=== PATIENT | male | born 1955 | race Caucasian/White ===

== ENCOUNTER 2016-11-27 16:14 | Emergency (ER) | payer MEDICAID ==
[~2016-11-27] VITALS: Ht 170.2 cm; Wt 80.0 kg
[~2016-11-27 16:14] MED LIST: AMLO5TAB2 PO; ATOR20TA9 PO; BENZ0.5T PO; BENZ1TAB61 PO; CARV6.252 PO; CHLO100T PO; DOCU-131 PO; ENAL2.5T PO; ENAL5TAB PO; FLUO10CA7 PO; HALO0.5T PO; HYDR-3341 PO; HYDR25TA6 PO; METO50TA82 PO; OXYC5TAB3 PO; POLY17PO5 PO; RISP0.253 PO; RISP2TAB35 PO; SODI1TAB PO; ZOLP5TAB6 PO
[2016-11-27 16:17] VITALS: BP 146/102
[2016-11-27] MEDS ORDERED: IBUPROFEN 200 MG TABLET ONE (17:13)
[2016-11-27] MEDS ORDERED: IBUPROFEN 200 MG TABLET PO ONE (17:30)
== END 2016-11-27 16:34 | disposition home or self-care (01) ==
LOC: ED 16:28
DX: S82.55XA Nondisplaced fracture of medial malleolus of left tibia, initial encounter for closed fracture (principal); S93.412A Sprain of calcaneofibular ligament of left ankle, initial encounter; S93.492A Sprain of other ligament of left ankle, initial encounter; I10 Essential (primary) hypertension; F20.9 Schizophrenia, unspecified; F10.120 Alcohol abuse with intoxication, uncomplicated; X50.1XXA Overexertion from prolonged static or awkward postures, initial encounter; Y93.89 Activity, other specified; Y99.8 Other external cause status; Y92.89 Other specified places as the place of occurrence of the external cause
CPT/HCPCS: 29515; 99284

== ENCOUNTER 2016-12-12 00:34 | Emergency (ER) | payer MEDICAID ==
[~2016-12-12] VITALS: Ht 167.6 cm; Wt 80.0 kg
[2016-12-12 00:47] VITALS: BP 176/113
== END 2016-12-12 02:16 | disposition home or self-care (01) ==
LOC: ED 01:14
DX: S82.64XD Nondisplaced fracture of lateral malleolus of right fibula, subsequent encounter for closed fracture with routine healing (principal); I10 Essential (primary) hypertension; N40.0 Benign prostatic hyperplasia without lower urinary tract symptoms; X58.XXXD Exposure to other specified factors, subsequent encounter
CPT/HCPCS: 99283

== ENCOUNTER 2016-12-17 11:12 | Emergency (ER) | payer MEDICAID ==
[~2016-12-17] VITALS: Ht 170.2 cm; Wt 79.0 kg
[2016-12-17] MEDS ORDERED: ENAL2.5T PO (11:25)
[2016-12-17 11:54] LABS: HEMATOCRIT 41.8 % (39.2-51.8); HEMOGLOBIN 13.7 g/dL (13.7-18.0); WHITE BLOOD COUNT 7.1 x10^3/uL (3.4-10)
[2016-12-17 12:07] LABS: BLOOD UREA NITROGEN 9 mg/dL (7-18)
[2016-12-17] MEDS ORDERED: SODIUM CHLORIDE FLUSH 10ML SYR IVF ONE (12:30)
[2016-12-17 12:51] VITALS: BP 137/109
== END 2016-12-17 13:22 | disposition home or self-care (01) ==
LOC: MERGE 11:12 → ED 13:15
DX: S82.52XA Displaced fracture of medial malleolus of left tibia, initial encounter for closed fracture (principal); I10 Essential (primary) hypertension; E78.00 Pure hypercholesterolemia, unspecified; G89.29 Other chronic pain; Z79.82 Long term (current) use of aspirin; W18.30XA Fall on same level, unspecified, initial encounter; Y93.89 Activity, other specified; Y92.89 Other specified places as the place of occurrence of the external cause; Y99.8 Other external cause status
CPT/HCPCS: 29515; 36415; 71010; 80047; 80048; 82040; 83880; 85025; 85610; 85730; 93005

== ENCOUNTER 2016-12-25 18:28 | Emergency (ER) | payer MEDICAID ==
[~2016-12-25] VITALS: Ht 152.4 cm; Wt 76.8 kg
[2016-12-25 18:39] VITALS: BP 161/96
== END 2016-12-25 19:57 | disposition home or self-care (01) ==
LOC: ED 19:30
DX: S82.55XD Nondisplaced fracture of medial malleolus of left tibia, subsequent encounter for closed fracture with routine healing (principal); I10 Essential (primary) hypertension; F20.9 Schizophrenia, unspecified; E78.00 Pure hypercholesterolemia, unspecified; F17.200 Nicotine dependence, unspecified, uncomplicated
CPT/HCPCS: 99281

== ENCOUNTER 2018-03-24 14:49 | Emergency (ER) | payer MEDICAID ==
[~2018-03-24] VITALS: Ht 167.6 cm; Wt 90.9 kg
[~2018-03-24 14:49] MED LIST changes: +AMLO-150 PO; -AMLO5TAB2 PO; +ATOR20TA37 PO; -ATOR20TA9 PO; -BENZ0.5T PO; +BENZ0.5T35 PO; +ENAL20TA PO; +HYDR25TA11 PO; +HYDR50TA13 PO; +METO25TA35 PO; +MIRT15TA4 PO; +NICO-487 TD; +RISP1TAB45 PO; +RISP4TAB2 PO; +SIMV20TA3 PO; +ZOLP10TA PO
[2018-03-24 15:07] VITALS: BP 153/100
--- NOTE | 2018-03-24 15:20 | NUR ---
[facility] FROM [facility]. PER EMS THEY WERE CALLED BY [employer] WHO HAD BEEN CONTACTED FOR A WELLNESS CHECK. WHEN EMS ARRIVED PT WAS OUTSIDE STANDING WITH [employer]. VSS AND NAD NOTED. PT IS PRIMARY ESTONIAN SPEAKING. DR. CONTRERAS AT BEDSIDE AND INTERVIEWED PT. PER DR. CONTRERAS PT HAS NO COMPLAINTS AT THIS TIME, DENIES PAIN. PT REFUSES AND LAB TESTING. PT AGREES TO BREATHALIZER WHICH WAS COMPLETED AND RESULTED 0.000. PT CALL LIGHT W/I REACH. PT WATCHING TV. VSS NOTED.
--- NOTE | 2018-03-24 15:41 | NUR ---
TASK RN: Vitaliy Haque provided bengali D/C instructions. Patient/Caregiver given discharge instructions and they have confirmed that they understand the instructions. Patient ambulatory with steady gait. Addendum: 03/24/18 at 1552 by JAMES PT USES ONLY ONE CRUTCH TO AMBULATE. WALKER OFFERED, PT REFUSED.
== END 2018-03-24 15:58 | disposition home or self-care (01) ==
LOC: ED 14:50
DX: M25.572 Pain in left ankle and joints of left foot (principal); G89.29 Other chronic pain; F39 Unspecified mood [affective] disorder; E78.00 Pure hypercholesterolemia, unspecified; I10 Essential (primary) hypertension; F20.9 Schizophrenia, unspecified; F17.200 Nicotine dependence, unspecified, uncomplicated; Z72.9 Problem related to lifestyle, unspecified
CPT/HCPCS: 99283

== ENCOUNTER 2018-06-07 13:01 | Emergency (ER) | payer MEDICAID ==
[~2018-06-07] VITALS: Ht 170.2 cm; Wt 91.0 kg
[2018-06-07 13:20] VITALS: BP 152/97
--- NOTE | 2018-06-07 13:34 | NUR ---
RAD AT BEDSIDE
--- NOTE | 2018-06-07 14:08 | NUR ---
PA TO BEDSIDE TO RECHECK PT
== END 2018-06-07 14:32 | disposition home or self-care (01) ==
LOC: ED 14:26
DX: S93.622A Sprain of tarsometatarsal ligament of left foot, initial encounter (principal); I10 Essential (primary) hypertension; E78.00 Pure hypercholesterolemia, unspecified; F20.9 Schizophrenia, unspecified; F32.9 Major depressive disorder, single episode, unspecified; W18.30XA Fall on same level, unspecified, initial encounter; Y93.89 Activity, other specified; Y92.89 Other specified places as the place of occurrence of the external cause; Y99.8 Other external cause status
CPT/HCPCS: 99283

== ENCOUNTER 2018-06-09 12:52 | Emergency (ER) | payer MEDICAID ==
[~2018-06-09] VITALS: Ht 170.2 cm; Wt 90.9 kg
--- NOTE | 2018-06-09 13:31 | NUR ---
PRESENTS VIA [facility] FOR ALL QUADRANT ABD PAIN AND VOMITING X 1 AFTER EATING A SUSPECT MEAL. EMS GAVE 4MG ZOFRAN PO ENROUTE WITH IMPROVEMENT IN NAUSEA. REPRTS HE HAS A HX OF HTN WHICH IS SUPPOSED TO BE TX . HOWEVER HE HAS NOT BEEN TAKING THE MEDICATION. EMS AND ROOM SBP 180. PROVIDER AT BESIDE. PLAN IS NOT ATTRIBUTE HTN TO DISCOMFORT AND PO CHALLEGE THE PATIENT TO SEE HOW HE DOES.
--- NOTE | 2018-06-09 14:17 | NUR ---
PATIENT APPEAR WELL. DENIES PAIN OR NAUSEA. TAKING CANDACE FLUID/ SOLIDS. WALKED TO RESTROOM W/ NO DIFFICULTY.
[2018-06-09 14:30] VITALS: BP 163/96
--- NOTE | 2018-06-09 15:20 | NUR ---
BREAK RN: PT CLEARED FOR DISCHARGE. AMBULATING WELL WITH 1 CRUTCH. REQUESTING TAXI VOUCHER, GIVEN NUMBER FOR [facility].
== END 2018-06-09 15:47 | disposition home or self-care (01) ==
LOC: ED 15:30
DX: I10 Essential (primary) hypertension (principal); R11.2 Nausea with vomiting, unspecified; Z72.9 Problem related to lifestyle, unspecified
CPT/HCPCS: 99283

== ENCOUNTER 2018-07-30 08:28 | Emergency (ER) | payer MEDICAID ==
[~2018-07-30] VITALS: Ht 170.2 cm; Wt 74.0 kg
--- NOTE | 2018-07-30 08:28 | NUR ---
62 YR OLD MALE ARRIVED VIA EMS WITH C/O LEFT ANKLE PAIN, S/P TRIPPING OVER A PARKING CURB. PT TRANSFERED TO [facility], WANTING THE TV REMOTE AND SOMETHING TO EAT. PT COOPERATIVE WITH CARE. CONT TO MONITOR.
[2018-07-30 08:59] VITALS: BP 136/85
--- NOTE | 2018-07-30 10:03 | NUR ---
NO ACUTE DISTRESS NOTED. NO IV TO DC, REVIEWED DC INSTRUSTIONS WITH PT. PT WITH SINGLE CRUTCH WALKED TO W/C. PT TAKEN TO PHONE TO CALL [facility] FOR TRANSPORT HOME.
== END 2018-07-30 10:06 | disposition home or self-care (01) ==
LOC: ED 09:32
DX: M25.572 Pain in left ankle and joints of left foot (principal); M79.662 Pain in left lower leg; I10 Essential (primary) hypertension; F17.200 Nicotine dependence, unspecified, uncomplicated
CPT/HCPCS: 99283

== ENCOUNTER 2019-11-01 09:16 | Emergency (ER) | payer MEDICAID ==
[~2019-11-01] VITALS: Ht 170.2 cm; Wt 90.9 kg
[~2019-11-01 09:16] MED LIST changes: +FLUO10CA14 PO; -FLUO10CA7 PO; +HYDR-826 PO; -HYDR25TA11 PO; -HYDR50TA13 PO; +HYDR50TA99 PO; +MIRT-34 PO; -MIRT15TA4 PO; +SIMV20TA19 PO; -SIMV20TA3 PO
[2019-11-01 09:20] VITALS: BP 159/91
== END 2019-11-01 10:20 | disposition home or self-care (01) ==
LOC: ED 10:06
DX: G89.29 Other chronic pain (principal); M25.572 Pain in left ankle and joints of left foot; M79.89 Other specified soft tissue disorders; I10 Essential (primary) hypertension; E78.00 Pure hypercholesterolemia, unspecified
CPT/HCPCS: 99281

== ENCOUNTER 2020-09-23 15:54 | Emergency (ER) | payer MEDICAID ==
[~2020-09-23] VITALS: Ht 170.2 cm; Wt 78.0 kg
[~2020-09-23 15:54] MED LIST changes: -ENAL2.5T PO; +ENAL2.5T8 PO; -ENAL20TA PO; +ENAL20TA9 PO; -ENAL5TAB PO; +ENAL5TAB10 PO; -FLUO10CA14 PO; +FLUO10CA15 PO; +MIRT-14 PO; -MIRT-34 PO; -NICO-487 TD; +NICO-587 TD; -OXYC5TAB3 PO; +OXYC5TAB98 PO; -RISP4TAB2 PO; +RISP4TAB66 PO
[2020-09-23 16:51] LABS: BASOPHILS % (AUTO) 1 % (0-1); EOSINOPHILS % (AUTO) 1 % (1-7); LYMPHOCYTES % (AUTO) 30 % (22-44); MEAN PLATELET VOLUME 7.5 fL (7.4-10.4); MONOCYTES % (AUTO) 3 % (2-9); NEUTROPHILS % (AUTO) 65 % (42-75); PLATELET COUNT 252 x10^3/uL (130-400)
[2020-09-23 17:03] LABS: CHLORIDE 111 mmol/L (98-107)
[2020-09-23 17:08] LABS: ALANINE AMINOTRANSFERASE 18 U/L (12-78); ALBUMIN 3.6 g/dL (3.4-5.0); ALKALINE PHOSPHATASE 70 U/L (45-117); ANION GAP 8 mmol/L (5-15); BILIRUBIN,TOTAL 0.5 mg/dL (0.2-1.0); TOTAL PROTEIN 8.2 g/dL (6.4-8.2); TROPONIN I < 0.015 ng/mL (0.000-0.045)
--- NOTE | 2020-09-23 18:38 | NUR ---
BENCH LATHE OPERATOR: PT TO ROOM FROM LOBBY VIA W/C.
[2020-09-23 18:46] VITALS: BP 134/95
--- NOTE | 2020-09-23 19:08 | NUR ---
this rn was recieving report from matt chatterjee. md walked in and pt started yelling, unprompted, yelling "fuck you". erp stated pt to be discharged. security called and at bedside
== END 2020-09-23 19:14 | disposition home or self-care (01) ==
LOC: ED 18:45
DX: M79.662 Pain in left lower leg (principal); G89.29 Other chronic pain; Z72.9 Problem related to lifestyle, unspecified; R00.0 Tachycardia, unspecified; R53.1 Weakness
CPT/HCPCS: 36415; 70450; 80053; 80320; 84484; 85025; 93005; 99285; G0480